=== PATIENT | female | born 1985 | race Hispanic/Latino ===

== ENCOUNTER 2019-05-17 09:37 | Observation (INO) | payer BC ==
[~2019-05-17] VITALS: Ht 160 cm; Wt 81.6 kg
[~2019-05-17 09:37] MED LIST: AEC81 PO; FERR-82 PO; METHY250 PO; PNV1TABL17 PO
[2019-05-17 10:35] VITALS: BP 155/97
[2019-05-17] MEDS: LABETALOL HCL 200 MG TABLET PO SCH ×2 (10:42→20:32)
[2019-05-17 11:15] LABS: BASOPHILS % (AUTO) 0.3 % (0.0-5.0); HEMATOCRIT 32.5 % (36-48); LYMPHOCYTES % (AUTO) 14.5 % (21.0-51.0); MEAN CORPUSCULAR HEMOGLOBIN 31.1 pg (27.0-33.0); MEAN CORPUSCULAR HGB CONC 33.5 g/dL (32.0-36.0); MEAN CORPUSCULAR VOLUME 92.9 fL (79-99); MONOCYTES % (AUTO) 4.5 % (3.0-13.0); PLATELET COUNT (AUTO) 243 K/uL (130-400); RED CELL DISTRIBUTION WIDTH 13.4 % (11.0-15.5); WHITE BLOOD COUNT (AUTO) 9.7 K/uL (4.8-10.8)
[2019-05-17 11:41] LABS: ALBUMIN 2.8 g/dL (3.5-5.0); BILIRUBIN,TOTAL 0.4 mg/dL (0.2-1.0); CREATININE 0.6 mg/dL (0.5-1.5); POTASSIUM 3.3 mmol/L (3.5-5.1); TOTAL PROTEIN, SERUM 6.4 g/dL (6.0-8.3); URIC ACID 4.8 mg/dL (2.6-7.2)
[2019-05-17 11:43] VITALS: BP 141/85
[2019-05-17 12:12] LABS: INR 0.83 (0.85-1.15); PARTIAL THROMBOPLASTIN TIME 26.9 SEC (26.3-35.5)
[2019-05-17 16:39] VITALS: BP 152/88
[2019-05-17 19:24] VITALS: BP 164/93
[2019-05-17 23:14] VITALS: BP 153/89
[2019-05-18 03:40] VITALS: BP 142/88
[2019-05-18 07:40] VITALS: BP 159/104
[2019-05-18] MEDS: LABETALOL HCL 200 MG TABLET PO SCH (08:56)
[2019-05-18] MEDS ORDERED: DIPH,PERTUSS(ACELL),TET VAC/PF 0.5 ML VIAL IM SCH (11:00)
[2019-05-18 11:19] VITALS: BP 143/101
[2019-05-18] MEDS ORDERED: LABETALOL HCL 200 MG TABLET PO SCH (14:00)
== END 2019-05-18 13:05 | disposition home or self-care (01) ==
LOC: WSH 09:37
PROVIDERS: ADMIT Specialist; ATTEND Specialist
DX: O10.913 Unspecified pre-existing hypertension complicating pregnancy, third trimester (principal); Z90.49 Acquired absence of other specified parts of digestive tract; Z79.899 Other long term (current) drug therapy; Z3A.36 36 weeks gestation of pregnancy; Z23 Encounter for immunization
CPT/HCPCS: 36415; 59025; 80053; 84550; 85025; 85384; 85610; 85730; 90471; 90715; G0378 ×27

== ENCOUNTER 2019-05-21 10:57 | Inpatient (IN) | payer BC ==
[~2019-05-21] VITALS: Ht 160 cm; Wt 82.6 kg
[2019-05-21] MEDS: LACTATED RINGERS 1000ML 1,000 ML IV PRN (11:50)
[2019-05-21 12:16] LABS: HEMATOCRIT 31.2 % (36-48); MEAN CORPUSCULAR HEMOGLOBIN 30.8 pg (27.0-33.0); MEAN CORPUSCULAR HGB CONC 33.7 g/dL (32.0-36.0); MEAN CORPUSCULAR VOLUME 91.5 fL (79-99); PLATELET COUNT (AUTO) 227 K/uL (130-400); RED BLOOD CELL COUNT(AUTO) 3.41 MIL/uL (4.00-5.50); RED CELL DISTRIBUTION WIDTH 13.5 % (11.0-15.5); WHITE BLOOD COUNT (AUTO) 9.8 K/uL (4.8-10.8)
[2019-05-21 12:18] LABS: APPEARANCE,URINE CLOUDY (CLEAR); BILIRUBIN,URINE NEGATIVE (NEGATIVE); COLOR,URINE YELLOW (YELLOW); GLUCOSE, URINE (UA) NEGATIVE (NEGATIVE); KETONES,URINE NEGATIVE (NEGATIVE); LEUKOCYTE ESTERASE ,URINE TRACE (NEGATIVE); NITRATE,URINE NEGATIVE (NEGATIVE); OCCULT BLOOD,URINE NEGATIVE (NEGATIVE); PROTEIN,URINE TRACE mg/dL (NEGATIVE)
[2019-05-21 12:43] LABS: BACTERIA,URINE Many /HPF (None Seen); RBC,URINE 0-1 /HPF (0-1); SQUAMOUS EPITHELIAL CELL,UR Few /HPF (0-2)
[2019-05-21] MEDS: LABETALOL HCL 200 MG TABLET PO SCH ×2 (14:49→21:12)
[2019-05-22] MEDS: LACTATED RINGERS 1000ML 1,000 ML IV PRN (00:34)
[2019-05-22] MEDS ORDERED: LACTATED RINGERS 1000ML 1,000 ML IV SCH (07:00)
[2019-05-22 07:11] LABS: HEPATITIS Bs ANTIGEN SCREEN P Negative (Negative)
[2019-05-22] MEDS ORDERED: CEFAZOLIN SODIUM 1 GM VIAL IVP PRN (08:00)
[2019-05-22] MEDS ORDERED: FENTANYL CITRATE PF 50 MCG/1 ML 2ML VIAL ONE (11:33)
[2019-05-22] MEDS ORDERED: DURAMORPH PF1 MG/ML 10ML AMP IV ONE (11:33)
[2019-05-22] MEDS ORDERED: ONDANSETRON HCL 4 MG/2 ML VIAL ONE (11:33)
[2019-05-22] MEDS ORDERED: CEFAZOLIN SODIUM 1 GM VIAL IVP ONE (11:43)
[2019-05-22] MEDS ORDERED: OXYTOCIN 10 USP UNITS/ML ONE (11:49)
[2019-05-22] MEDS ORDERED: MEPERIDINE-PF 75 MG/ML SYG IM PRN (12:45)
[2019-05-22] MEDS ORDERED: OXYTOCIN-LR 20 UNITS/1000 ML 1,000 ML IV PRN (12:45)
[2019-05-22] MEDS ORDERED: SODIUM CHLORIDE 0.9% 10 ML VIAL IVP PRN (12:45)
[2019-05-22 14:16] VITALS: BP 141/97
[2019-05-22] MEDS ORDERED: LABE200T5 PO (14:39)
[2019-05-22] MEDS ORDERED: MEPERIDINE-PF 100 MG/ML SYG ONE (14:48)
[2019-05-22] MEDS: PROMETHAZINE HCL 25 MG/ML 1ML AMPULE IM PRN (14:56)
[2019-05-22 16:39] VITALS: BP 138/83
[2019-05-22] MEDS: DEXTROSE 5 %-0.45 % NACL 1,000 ML IV PRN (19:23)
--- NOTE | 2019-05-22 19:25 | NUR ---
Report received from Dee Dee Laurent RN; Patient received lying in bed awake alert with IV of LR with 20 units Pitocin infusing at 150 ml/hour, Bird catheter patent flowing clear yellow urine. Fundus firm at the level of umbilicus with small lochia rubra. Plan of care discussed with patient verbalizes understanding.
--- NOTE | 2019-05-22 19:25 | NUR ---
Report received from Dee Dee Laurent RN< Patient lying in bed sleepy with IV of LR at 125 ml/min. Bird Catheter patent, NOLAN drain patent with serous sanguinous drainage. Plan of care discussed with patient verbalizes understanding. Addendum: 05/23/19 at 0714 by RADHA ANTOINE RN RN charted on Wrong patient.
[2019-05-22 19:39] VITALS: BP 130/86
[2019-05-22 23:24] VITALS: BP 140/96
--- NOTE | 2019-05-22 23:30 | NUR ---
Activity: Patient sitting at bedside dangling her legs. No complaints of pain able to tolerate it well.
[2019-05-23] MEDS: DEXTROSE 5 %-0.45 % NACL 1,000 ML IV PRN (01:48)
[2019-05-23 03:23] VITALS: BP 139/86
--- NOTE | 2019-05-23 04:00 | NUR ---
Activity: Patient up in bed walk at bedside for a few minutes. Able to tolerate it well.
[2019-05-23] MEDS ORDERED: MEPERIDINE-PF 100 MG/ML SYG ONE (04:53)
[2019-05-23] MEDS: PROMETHAZINE HCL 25 MG/ML 1ML AMPULE IM PRN (04:59)
[2019-05-23 05:17] LABS: HEMATOCRIT 30.2 % (36-48); MEAN CORPUSCULAR HEMOGLOBIN 30.7 pg (27.0-33.0); MEAN CORPUSCULAR HGB CONC 33.1 g/dL (32.0-36.0); MEAN CORPUSCULAR VOLUME 92.6 fL (79-99); PLATELET COUNT (AUTO) 225 K/uL (130-400); RED BLOOD CELL COUNT(AUTO) 3.26 MIL/uL (4.00-5.50); RED CELL DISTRIBUTION WIDTH 13.5 % (11.0-15.5); WHITE BLOOD COUNT (AUTO) 18.2 K/uL (4.8-10.8)
--- NOTE | 2019-05-23 06:45 | NUR ---
Bird; Bird Catheter taken out patient tolerated it well. Advice to call for help if needed. She verbalizes understanding. Abdominal dressing taken out with small brownish bloody drainage dermabond on her incision with 2 steri strips on her right side of the incision taken out with small bloody discharges on it. Abdominal binder applied to abdomen.
[2019-05-23 07:36] VITALS: BP 145/90
[2019-05-23] MEDS ORDERED: LABETALOL HCL 200 MG TABLET PO SCH ×2 (09:00)
[2019-05-23] MEDS ORDERED: ACETAMINOPHEN-CODEINE 300/30MG TAB PO PRN (09:15)
[2019-05-23] MEDS ORDERED: ACETAMINOPHEN EXTRA STRENGTH 500 MG TABLET PO PRN (09:15)
[2019-05-23] MEDS ORDERED: BISACODYL 10 MG SUPP.RECT RC PRN (09:15)
[2019-05-23] MEDS ORDERED: LANOLIN 30GM OINTMENT TP PRN (09:15)
[2019-05-23] MEDS ORDERED: SIMETHICONE 80 MG TAB.CHEW PO PRN (09:15)
[2019-05-23] MEDS ORDERED: HYDROCODONE/ACETAMINOPHEN 5/325 MG TAB PO PRN (09:15)
[2019-05-23] MEDS ORDERED: IBUPROFEN 600 MG TABLET PO PRN (09:15)
[2019-05-23] MEDS ORDERED: ACET1TAB25 PO (11:15)
[2019-05-23] MEDS ORDERED: LABE100T5 PO (11:17)
--- NOTE | 2019-05-23 11:30 | NUR ---
verbal and written discharge instructions given, informed of the follow up appointment, prescription given, all questions answered, informed to call the doctor for future concerns, pt voiced understanding to all things discussed. Addendum: 05/23/19 at 1145 by JONATAN GARLAND RN Amended: Links added.
[2019-05-23 11:33] VITALS: BP 148/92
[2019-05-23] MEDS ORDERED: IBUPROFEN 800 MG TAB PO SCH (12:45)
--- NOTE | 2019-05-23 13:40 | NUR ---
pt is dismissed in stable condition, brought to private car via wheelchair by Lorin Malloypcp Addendum: 05/23/19 at 1404 by JONATAN GARLAND RN Amended: Links added.
[2019-05-23] MEDS ORDERED: DOCUSATE SODIUM 100 MG CAP PO SCH (21:00)
== END 2019-05-23 13:40 | disposition home or self-care (01) | DRG 798 ==
LOC: LDH 11:27 → WSH 05-22 14:15
PROVIDERS: ADMIT Specialist; ATTEND Specialist
PROC: 0UB70ZZ Excision of Bilateral Fallopian Tubes, Open Approach (ICD-10-PCS; 2019-05-22)
PROC: 10E0XZZ Delivery of Products of Conception, External Approach (ICD-10-PCS; principal; 2019-05-22 11:30)
DX: O34.211 Maternal care for low transverse scar from previous cesarean delivery (principal); Z37.0 Single live birth; O16.4 Unspecified maternal hypertension, complicating childbirth; Z3A.37 37 weeks gestation of pregnancy; Z30.2 Encounter for sterilization
CPT/HCPCS: 36415; 59510; 81001; 85027; 86592; 86850; 86900; 86901; 87088; 87340; A4344; G0378; J0690; J2175; J2274; J2405; J2550; J2590; J3010; J7120

== ENCOUNTER 2019-06-01 12:12 | Emergency (ER) | payer BC ==
[~2019-06-01 12:12] MED LIST changes: +ACET1TAB25 PO; -AEC81 PO; -FERR-82 PO; +LABE100T5 PO; +LABE200T5 PO; -METHY250 PO
[2019-06-01 13:32] LABS: APPEARANCE,URINE Clear (CLEAR); BILIRUBIN,URINE Negative (NEGATIVE); COLOR,URINE Yellow (YELLOW); GLUCOSE, URINE (UA) Negative (NEGATIVE); KETONES,URINE Negative (NEGATIVE); LEUKOCYTE ESTERASE ,URINE Trace (NEGATIVE); NITRATE,URINE Negative (NEGATIVE); OCCULT BLOOD,URINE Small (NEGATIVE); PROTEIN,URINE Negative (NEGATIVE); UROBILINOGEN,URINE 0.2 mg/dL (0.2-1.0)
[2019-06-01 13:45] LABS: BASOPHILS % (AUTO) 0.4 % (0.0-5.0); EOSINOPHILS % (AUTO) 2.2 % (0.0-8.0); HEMATOCRIT 32.5 % (36-48); LYMPHOCYTES % (AUTO) 16.9 % (21.0-51.0); MEAN CORPUSCULAR HEMOGLOBIN 30.7 pg (27.0-33.0); MEAN CORPUSCULAR HGB CONC 33.5 g/dL (32.0-36.0); MEAN CORPUSCULAR VOLUME 91.5 fL (79-99); MONOCYTES % (AUTO) 4.9 % (3.0-13.0); NEUTROPHILS % (AUTO) 74.5 % (40.0-77.0); PLATELET COUNT (AUTO) 578 K/uL (130-400); RED BLOOD CELL COUNT(AUTO) 3.55 MIL/uL (4.00-5.50); RED CELL DISTRIBUTION WIDTH 13.2 % (11.0-15.5); WHITE BLOOD COUNT (AUTO) 7.4 K/uL (4.8-10.8)
[2019-06-01 13:46] LABS: BACTERIA,URINE Few /HPF (None Seen); RBC,URINE 0-1 /HPF (0-1)
[2019-06-01 13:47] LABS: SQUAMOUS EPITHELIAL CELL,UR Rare /HPF (0-2)
[2019-06-01 13:57] LABS: CREATININE 0.7 mg/dL (0.5-1.5); POTASSIUM 3.5 mmol/L (3.5-5.1)
[2019-06-01 13:58] LABS: INR 0.88 (0.85-1.15); PARTIAL THROMBOPLASTIN TIME 30.8 SEC (26.3-35.5); PROTHROMBIN TIME 9.6 SEC (9.6-11.6)
[2019-06-01] MEDS ORDERED: ACETAMINOPHEN EXTRA STRENGTH 500 MG TABLET ONE (13:58)
[2019-06-01] MEDS ORDERED: NITROGLYCERIN 1GM/1 INCH PACKET TD ONE (13:58)
[2019-06-01 14:06] LABS: ALBUMIN 3.2 g/dL (3.5-5.0); BILIRUBIN,TOTAL 0.3 mg/dL (0.2-1.0); TOTAL PROTEIN, SERUM 7.3 g/dL (6.0-8.3)
[2019-06-01] MEDS ORDERED: LISINOPRIL 5 MG TABLET ONE (14:59)
== END 2019-06-01 15:51 | disposition home or self-care (01) ==
LOC: EDH 12:12
DX: I10 Essential (primary) hypertension (principal); Z90.49 Acquired absence of other specified parts of digestive tract; Z98.890 Other specified postprocedural states
CPT/HCPCS: 36415; 80053; 81001; 85025; 85610; 85730; 93005

== ENCOUNTER → 2019-06-22 | Outpatient (CLI) | payer BC | END | disposition home or self-care (01) | LOC: SHCH 10:36 | PROVIDERS: ATTEND Internal Medicine Cardiovascular Disease | DX: I10 Essential (primary) hypertension (principal) | CPT/HCPCS: 93306; 93356 ==